=== PATIENT | female | born 1990 | race Caucasian/White ===

== ENCOUNTER 2019-06-13 20:40 | Emergency (ER) | payer BC ==
[~2019-06-13] VITALS: Ht 177.8 cm; Wt 116.6 kg
[2019-06-13] MEDS ORDERED: ONDANSETRON PF 4 MG/2 ML VIAL. ONE (21:22)
[2019-06-13 21:27] LABS: BASO % 1 % (0-3); EOS # 0.1 x10^3/uL (0.0-0.7); EOS % 1 % (0-3); HEMATOCRIT 42.5 % (36.0-47.0); LYMPH # 2.9 x10^3/uL (1.0-4.8); LYMPH % 32 % (24-48); MEAN CORPUSCULAR HEMOGLOBIN 29 pg (25-35); MEAN CORPUSCULAR HGB CONC 33 g/dL (31-37); MEAN CORPUSCULAR VOLUME 88 fL (79-100); MONO # 0.6 x10^3/uL (0.0-1.1); MONO % 6 % (0-9); NEUT # 5.5 x10^3uL (1.8-7.7); NEUT % 61 % (31-73); PLATELET COUNT 297 x10^3/uL (140-400); RED BLOOD COUNT 4.82 x10^6/uL (3.50-5.40); RED CELL DISTRIBUTION WIDTH 13.2 % (11.5-14.5); WHITE BLOOD COUNT 9.1 x10^3/uL (4.0-11.0)
--- NOTE | 2019-06-13 21:29 | PHYS DOC ---
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 Hurts to touch the area she ate a chicken sandwich from [employer] for dinner and had no increase in pain she has no vomiting she's been eating without any difficulty at all no fever denies chest pain denies shortness of breath does hurt somewhat to cough as well and also to laugh Review of Systems Review of Systems Constitutional: Denies fever or chills [] Eyes: Denies change in visual acuity, redness, or eye pain [] HENT: Denies nasal congestion or sore throat [] Respiratory: Denies cough or shortness of breath [] Cardiovascular: No additional information not addressed in HPI [] GI: Denies nausea, vomiting, bloody stools or diarrhea [] Patient does have chronic back pain and thinks that maybe it has been Chad rotating around to the front All other systems were reviewed and found to be within normal limits, except as documented in this note. Current Medications Current Medications Current Medications Medications (Trade) Dose Ordered Sig/Deb Start Time Stop Time Status Last Admin Dose Admin Ondansetron HCl (Zofran) 4 mg STK-MED ONCE 06/13/19 21:22 06/13/19 21:22 DC Sodium Chloride 1,000 ml @ 1,000 mls/hr 1X ONCE 06/13/19 22:00 06/13/19 22:59 Allergies Allergies Allergies Coded Allergies Type Severity Reaction Last Updated Verified No Known Drug Allergies 06/13/19 No Physical Exam Physical Exam Constitutional: Well developed, well nourished, no acute distress, non-toxic appearance. [] HENT: Normocephalic, atraumatic, bilateral external ears normal, oropharynx moist, no oral exudates, nose normal. [] Eyes: PERRLA, EOMI, conjunctiva normal, no discharge. [] Neck: Normal range of motion, no tenderness, supple, no stridor. [] Cardiovascular:Heart rate regular rhythm, no murmur [] Lungs & Thorax: Bilateral breath sounds clear to auscultation [] Abdomen: Bowel sounds normal, soft, there is mild tenderness just underneath the xiphoid process is really no significant right upper quadrant tenderness negative Alvarenga sign Skin: Warm, dry, no erythema, no rash. [] Back: No tenderness, no CVA tenderness. [] Extremities: No tenderness, no cyanosis, no clubbing, ROM intact, no edema. [] Neurologic: Alert and oriented X 3, normal motor function, normal sensory function, no focal deficits noted. [] Psychologic: Affect normal, judgement normal, mood normal. [] Current Patient Data Vital Signs Vital Signs Date Time Temp Pulse Resp B/P (MAP) Pulse Ox O2 Delivery O2 Flow Rate FiO2 06/13/19 20:50 98.2 87 16 98 Room Air perature (Fahrenheit): * 98.2 degrees F (97.6-99.5) Patient Temperature * 98.2 degrees F (97.5-99.5) Temperature Source * Oral Blood Pressure Systolic * 137 mm Hg (100-140) Blood Pressure Diastolic * 82 mm Hg (60-100) Blood Pressure Mean * 100 mm Hg Blood Pressure Location * Left Arm Blood Pressure Source * Automatic Cuff Pulse Rate * 87 beats per minute (60-90) Pulse Assessment Method * NIBP Respiratory Rate * 16 breaths per minute (12-24) Oxygen Delivery Method * Room Air Bedside Pulse Oximetry * 98 % Treatment Prior to Arrival EKG EKG []Normal sinus rhythm rate of [address] elevation was identified no STEMI interpreted by me time of encounter intervals normal Radiology/Procedures Radiology/Procedures targeted bedside u/s performed by me shows contracted gb, no pccf, cbd 4 mm[] Impressions: cxr negative Course & Med Decision Making Course & Med Decision Making Pertinent Labs and Imaging studies reviewed. (See chart for details) []upper abdo pain very reproducible with positioning in the er, (going from lying to sitting when she flexes abdo muscles she winces significantly). lft monica krueger given body habitus i dont think she has acute biliary process at this time recommended close f/u pmd to ensure improving lfts trial of antacid return prec discussed including migrating pain or any other concerns. Dragon Disclaimer Dragon Disclaimer This electronic medical record was generated, in whole or in part, using a voice recognition dictation system. Departure Departure: Impression: Primary Impression: Abdominal pain Disposition: HOME, SELF-CARE Condition: STABLE Referrals: MIQUEL VENTURA MD (PCP) Scripts Omeprazole (OMEPRAZOLE) 40 Mg Capsule.dr 1 CAP PO DAILY for epigastric pain, #30 CAP 0 Refills Prov: TERRI STOVALL MD 06/13/19 TERRI STOVALL MD Jun 13, 2019 21:28
[2019-06-13 21:38] LABS: ALBUMIN 3.8 g/dL (3.4-5.0); CALCIUM 9.7 mg/dL (8.5-10.1); CREATININE 0.7 mg/dL (0.6-1.0); GFR 100.4; POTASSIUM 3.3 mmol/L (3.5-5.1); TOTAL BILIRUBIN 0.5 mg/dL (0.2-1.0); TOTAL PROTEIN 7.5 g/dL (6.4-8.2)
[2019-06-13] MEDS ORDERED: ONDANSETRON PF 4 MG/2 ML VIAL. IV ONE (22:00)
[2019-06-13] MEDS ORDERED: IV NORMAL SALINE 1,000ML 1,000 ML IV ONE (22:00)
[2019-06-13] MEDS ORDERED: KETOROLAC 15 MG/ML VIAL. IVP ONE (22:30)
[2019-06-13] MEDS ORDERED: POTASSIUM CHLORIDE 20 MEQ TABLET.ER. PO ONE (22:30)
[2019-06-13 23:02] LABS: BACTERIA,URINE MANY /HPF (0-FEW); BILIRUBIN,URINE NEG (NEG); CLARITY,URINE HAZY; COLOR,URINE STRAW; GLUCOSE,URINE NEG (NEG); NITRITE,URINE POS (NEG); RBC,URINE 0 /HPF (0-2); SQUAMOUS EPITHELIAL CELL,UR OCC /LPF; UROBILINOGEN,URINE 0.2 mg/dL (0.2 mg/dL)
[2019-06-13] MEDS ORDERED: OMEP40CA45 PO (23:13)
[2019-06-13 23:27] VITALS: BP 113/58
--- NOTE | 2019-06-13 23:58 | RAD ---
Exam: Chest one view INDICATION: Chest pain TECHNIQUE: Frontal view which Comparisons: None FINDINGS: The cardiomediastinal silhouette and pulmonary vessels are within normal limits. The lung and pleural spaces are clear. IMPRESSION: No acute cardiopulmonary process. Electronically signed by: Alfredo Sanchez MD (06/13/2019 11:55 PM) [facility]
--- NOTE | 2019-06-14 12:11 | EKG ---
[address] [address] Test Date: 2019-06-13 Test Time: 21:30:03 Pat Name: PEDRO PABLO BILLINGS Department: Room: Gender: F [employer]: : 1990 Requested By: TERRI STOVALL Order Number: [id number] Reading MD: Measurements Intervals [place] Rate: 67 P: 34 VT: 188 QRS: 65 QRSD: 90 T: 19 QT: 378 QTc: 402 Interpretive Statements SINUS RHYTHM QRS(T) CONTOUR ABNORMALITY CONSIDER ANTEROSEPTAL MYOCARDIAL DAMAGE POSSIBLY ABNORMAL ECG RI6.01 No previous ECG available for comparison
== END 2019-06-13 23:27 | disposition home or self-care (01) ==
LOC: ER 20:40
DX: R10.11 Right upper quadrant pain (principal); G89.29 Other chronic pain; M54.89 Other dorsalgia; G43.909 Migraine, unspecified, not intractable, without status migrainosus
CPT/HCPCS: 36415; 71045; 80053; 81001; 83690; 84484; 84702; 85025; 87086; 87186; 93005; 96374; 96375; 99285; J1885; J2405; J7030

== ENCOUNTER → 2020-04-12 | Outpatient (CLI) | payer BC ==
[~2020-04-12] MED LIST: OMEP40CA45 PO
--- NOTE | 2020-04-12 12:28 | RAD ---
Examination: Right Lower Extremity Venous Doppler Ultrasound History: Right leg swelling Comparison: None Procedure: Lott scale, color flow 2D and spectal waveform analysis images are obtained with and without compression in the area of the common femoral vein, superficial femoral vein - femoral vein junction, main femoral vein (superficial femoral vein) and popliteal vein. Veins of the proximal calf are also imaged. Findings: There is normal duplex flow, color flow and compressibility of all visualized vein segments. No evidence of deep venous thrombus is present.Rouleaux type flow identified in the right lower extremity veins. Impression: No evidence of DVT in the right lower extremity venous system. Electronically signed by: Balbir Barrios MD (04/12/2020 12:25 PM) [id number]
== END ==
LOC: US 11:14
PROVIDERS: ATTEND Obstetrics & Gynecology
DX: R22.41 Localized swelling, mass and lump, right lower limb (principal); M79.89 Other specified soft tissue disorders
CPT/HCPCS: 93971

== ENCOUNTER → 2021-01-10 | Outpatient (CLI) | payer OTHER ==
[~2021-01-10] MED LIST changes: -OMEP40CA45 PO; +OMEP40CA7 PO
--- NOTE | 2021-01-10 17:35 | RAD ---
EXAMINATION: Left shoulder radiograph. VIEWS: 3 views COMPARISON: None INDICATION:30 years, Female, left shoulder pain. FINDINGS: No acute fracture, dislocation or subluxation. No bone erosion or periosteal reaction. No soft tissue swelling. Visualized left lung is unremarkable. IMPRESSION: No acute osseous process. Electronically signed by: Noe German MD (01/10/2021 5:33 PM) [id number]
== END ==
LOC: RAD 14:42
PROVIDERS: ATTEND Nurse Practitioner Adult Health
DX: M25.512 Pain in left shoulder (principal)
CPT/HCPCS: 73030